=== PATIENT | female | born 1930 | race African-American/Black ===

== ENCOUNTER 2017-09-25 10:53 | Inpatient (IN) | payer OTHER ==
[2017-09-25] MEDS ORDERED: NA CHLORIDE 0.9% 250 ML ONE (11:28)
[2017-09-25 11:57] LABS: Absolute Monocytes 0.6 K/uL (0.1-1.3); Absolute Neutrophil 4.7 K/uL (1.8-8.0); Basophils % 0.5 % (0-1.3); Hematocrit 37.1 % (36.0-45.0); Lymphocytes % 26.8 % (15.3-44.8); MCH 27.6 pg (27.0-35.0); MCV 86.8 fL (80-100); MPV 9.8 fL (7.6-11.3); Monocytes % 7.6 % (3.3-12.3); RBC Red Blood Cell Count 4.27 M/uL (3.86-4.86)
[2017-09-25 12:06] LABS: Protime INR 1.01
--- NOTE | 2017-09-25 12:15 | RAD REPORT ---
EXAM DESCRIPTION: CT - Head Brain Wo Cont - 09/25/2017 11:47 am CLINICAL HISTORY: Hypotensive, weakness, dizziness COMPARISON: CT head January 2017 TECHNIQUE: Axial 5 mm thick images of the head were obtained without IV contrast. All CT scans are performed using dose optimization technique as appropriate and may include automated exposure control or mA/KV adjustment according to patient size. FINDINGS: No intracranial hemorrhage, mass, edema or shift of mid-line structures. No acute cortical based infarction is identifiable. The patient has a baseline of moderate severity atrophy and chroni c ischemic change. Old encephalomalacia from prior CVA is present in the medial left occipital lobe a nd in the left basal ganglia. Small old infarctions seen near the right head of the caudate. No abnor mal extra-axial fluid collections. Ventricles are in proportion to volume loss. Physiologic and arter ial calcifications are present. Intracranial findings are similar to prior imaging. Patient has chronic opacification of small mastoid air cells. Partially visualized paranasal sinuses are clear. No acute bony findings. IMPRESSION: Prominent atrophy, chronic ischemic change and old infarction changes are present and de tailed in the body of the report. No acute intracranial finding or significant interval change.
[2017-09-25 12:20] LABS: Albumin 3.8 g/dL (3.2-5.5); Bilirubin Direct 0.1 mg/dL (0-0.2); Bilirubin Total 0.5 mg/dL (0.3-1.2); Magnesium 2.1 mg/dL (1.8-2.5); Protein, Total 7.6 g/dL (6.0-8.3)
[2017-09-25 12:23] LABS: CKMB Creatine Kinase MB 2.1 ng/ml (0.3-4.0)
[2017-09-25 12:32] LABS: Urine Blood TRACE (NEG); Urine Glucose NEGATIVE (NEG); Urine Protein TRACE (NEG); Urine Specific Gravity 1.015 (1.005-1.030); Urine pH 7.5 (5.0-7.0)
[2017-09-25] MEDS ORDERED: NA CHLORIDE 0.9% 500 ML ONE (12:34)
--- NOTE | 2017-09-25 12:38 | RAD REPORT ---
EXAM DESCRIPTION: RAD - Chest Single View - 09/25/2017 11:57 am CLINICAL HISTORY: Weakness, dizziness, shortness of breath, hypotension COMPARISON: October 06, 2016 TECHNIQUE: AP portable chest image was obtained 1147 hours . FINDINGS: No focal suspicious mass or consolidation. Failure and volume overload are not suspected. Heart, vasculature and lung markings are similar to the comparison. Trachea is midline. No measurable pleural effusion and no pneumothorax. No gross bony abnormality seen. No acute aortic findings suspe cted. IMPRESSION: No mass, consolidation or significant chest finding. Heart, vasculature and lung markings are not significantly different from comparison.
--- NOTE | 2017-09-25 12:57 | EDPHYS ---
Physician Documentation [facility] Name: Tati Drake Age: 87 yrs Sex: Female : 1930 Arrival Date: 09/25/2017 Time: 10:56 Bed 4 Private MD: Mauro Sprague ED Physician Matthias Arndt HPI: 09/25 11:30 This 87 yrs old Black Female presents to ER via Ambulatory with complaints of Blurred cp Vision, Dizziness, Blood Pressure Problem. 11:30 The patient's problem is reported as weakness, lower extremities, dizziness, blurred cp vision. 11:30 Onset: The symptoms/episode began/occurred this morning. cp 11:30 Duration: The episode is continuous. Associated signs and symptoms: Pertinent cp positives: history of hypotension at home, Pertinent negatives: abdominal pain, chest pain, headache. Patient's baseline: Neuro: alert but confused, Motor: right-sided weakness, Ambulation: walks with assist only, Speech: slow, The patient has a previous history of CVA. 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 - Social history:: Smoking status: Patient/guardian denies using tobacco. ROS: 11:35 Constitutional: Negative for body aches, chills, fever, poor PO intake. cp 11:35 ENT: Negative for injury, pain, and discharge. cp 11:35 Eyes: Positive for blurry vision, Negative for discharge, pain, redness. 11:35 Neck: Negative for pain with movement, pain at rest, stiffness, tenderness, bony tenderness. 11:35 Cardiovascular: Negative for chest pain, edema. 11:35 Respiratory: Negative for cough, shortness of breath, wheezing. 11:35 Abdomen/GI: Negative for abdominal pain, vomiting, diarrhea, constipation, black/tarry stool, rectal bleeding. 11:35 Back: Negative for pain at rest, pain with movement. 11:35 : Negative for urinary symptoms. 11:35 Skin: Negative for cellulitis, rash. 11:35 Neuro: Positive for dizziness, weakness, Negative for altered mental status, syncope, near syncope. 11:35 All other systems are negative. Exam: 11:33 ECG was reviewed by the Attending Physician. cp 11:40 Constitutional: The patient appears in no acute distress, alert, awake, cp non-diaphoretic, non-toxic, well developed, well nourished. 11:40 Head/Face: Normocephalic, atraumatic. cp 11:40 Eyes: Periorbital structures: appear normal, Pupils: equal, round, and reactive to light and accomodation, Extraocular movements: intact throughout, Conjunctiva: normal, no exudate, no injection, Sclera: no appreciated abnormality, Lids and lashes: appear normal, bilaterally. 11:40 ENT: External ear(s): are unremarkable, Ear canal(s): are normal, clear, TM's: bulging, is not appreciated, bilaterally, dullness, bilaterally, erythema, is not appreciated, bilaterally, Nose: is normal, Mouth: Lips: dry, Oral mucosa: moist, Posterior pharynx: is normal, airway is patent, no erythema, no exudate. 11:40 Neck: C-spine: vertebral tenderness, is not appreciated, crepitus, is not appreciated, ROM/movement: is normal, is supple, without pain, no range of motions limitations, no meningismus, no nuchal rigidity. 11:40 Chest/axilla: Inspection: normal, Palpation: is normal, no crepitus, no tenderness. 11:40 Cardiovascular: Rate: normal, Rhythm: regular, Pulses: Pulses are 2+ in right radial artery and left radial artery. Edema: is not appreciated, JVD: is not appreciated. 11:40 Respiratory: the patient does not display signs of respiratory distress, Respirations: normal, no use of accessory muscles, no retractions, no splinting, no tachypnea, labored breathing, is not present, Breath sounds: are clear throughout, no decreased breath sounds, no stridor, no wheezing. 11:40 Abdomen/GI: Inspection: abdomen appears normal, Bowel sounds: active, all quadrants, Palpation: abdomen is soft and non-tender, in all quadrants, rebound tenderness, is not appreciated, voluntary guarding, is not appreciated, involuntary guarding, is not appreciated. 11:40 Back: pain, is absent, ROM is normal. 11:40 Skin: cellulitis, is not appreciated, no rash present. 11:40 Neuro: Orientation: no acute changes, per family, Mentation: able to follow commands, slow to respond, Cerebellar function: Romberg testing is negative, Motor: moves all fours. 12:25 Radiologist reports: negative for acute findings Vital Signs: 11:02 BP 177 / 52; Pulse 86; Resp 19; Temp 97.6; Pulse Ox 96% on R/A; Weight 74.84 kg; Height la1 5 ft. 4 in. (162.56 cm); 11:10 BP 194 / 70 Supine; Pulse 57; sv 11:12 BP 203 / 123 Sitting; Pulse 93; sv 11:14 BP 199 / 104 Standing; Pulse 126; sv 12:17 BP 168 / 69; Pulse 55 MON; Resp 18; Pulse Ox 98% on R/A; sv 13:52 BP 214 / 93; Pulse 67; Resp 18; Pulse Ox 99% ; sv 14:44 BP 166 / 44; Pulse 73 MON; Resp 14; Pulse Ox 99% on R/A; sv 11:02 Body Mass Index 28.32 (74.84 kg, 162.56 cm) la1 12:17 Sinus bradycardia sv 14:44 Sinus Rhythm sv MDM: 11:11 Patient medically screened. cp 12:45 Data reviewed: vital signs, nurses notes, lab test result(s), EKG, radiologic studies, cp CT scan, plain films. 12:45 Test interpretation: by ED physician or midlevel provider: ECG, plain radiologic cp studies. 12:51 Physician consultation: Tory Morris DO was called at 12:53, was contacted at 12:53, regarding admission, to the telemetry unit. patient's condition. 09/25 11:18 Order name: Basic Metabolic Panel; Complete Time: 12:23 cp 09/25 12:23 Interpretation: Normal except: CL 99; BUN 49; CRE 2.46; GFR 22. cp 09/25 11:18 Order name: BNP; Complete Time: 12:25 cp 09/25 12:25 Interpretation: Abnormal: BNP 225. cp 09/25 11:18 Order name: CBC with Diff; Complete Time: 12:00 cp 09/25 12:01 Interpretation: Normal except: HGB 11.8; MCV 86.8; MCHC 31.8. cp 09/25 11:18 Order name: Ckmb; Complete Time: 12:25 cp 05 11:18 Order name: CPK; Complete Time: 12:25 cp 09/25 11:18 Order name: LFT's; Complete Time: 12:23 cp 09/25 12:23 Interpretation: Normal except: GLOB 3.8; A/G 1.0. cp 05/ 11:18 Order name: Magnesium; Complete Time: 12:25 cp 09/25 11:18 Order name: PT-INR; Complete Time: 12:23 cp 09/25 11:18 Order name: Ptt, Activated; Complete Time: 12:23 cp 09/25 11:18 Order name: Troponin (emerg Dept Use Only); Complete Time: 12:23 cp 09/25 12:20 Order name: Urine Dipstick--Ancillary (enter results); Complete Time: 12:40 ag 09/25 12:40 Interpretation: Normal except: UBLD TRACE; UPH 7.5; UESTR 2+. cp 09/25 12:26 Order name: Urine Microscopic Only; Complete Time: 13:15 cp 09/25 13:16 Interpretation: Normal except: UWBC 5-10; UBACT 20-50; SQEPI 10-20. cp 05 13:10 Order name: Urine Culture EDMS 09/25 13:23 Order name: Basic Metabolic Panel EDMS 09/25 11:16 Order name: Orthostatics; Complete Time: 11:26 cp 09/25 11:16 Order name: EKG; Complete Time: 11:17 cp 09/25 11:16 Order name: EKG - Nurse/Tech; Complete Time: 11:29 cp 09/25 11:18 Order name: XRAY Chest (1 view); Complete Time: 12:40 cp 09/25 11:18 Order name: Cardiac monitoring; Complete Time: 12:16 cp 09/25 11:18 Order name: IV Saline Lock; Complete Time: 11:48 cp 09/25 11:23 Order name: CT Head Brain wo Cont; Complete Time: 12:23 cp 09/25 12:24 Interpretation: Report reviewed. cp 09/25 13:23 Order name: Regular EDMS 09/25 13:23 Order name: Basic Metabolic Panel EDMS 09/25 13:23 Order name: CBC with Automated Diff EDMS 09/25 13:23 Order name: CBC with Automated Diff EDMS 09/25 11:18 Order name: Labs collected and sent; Complete Time: 11:48 cp 09/25 11:18 Order name: O2 Per Protocol; Complete Time: 11:23 cp 09/25 11:18 Order name: O2 Sat Monitoring; Complete Time: 11:23 cp 12 11:18 Order name: Urine Dipstick-Ancillary (obtain specimen); Complete Time: 12:16 cp 09/25 11:48 Order name: Cath; Complete Time: 12:16 cp EC:33 Rate is 51 beats/min. Rhythm is regular. LA interval is normal. QRS interval is normal. cp QT interval is normal. T waves are Inverted in leads I, aVL. No ST changes noted. Interpreted by me. Reviewed by me. Administered Medications: 12:16 Drug: NS 0.9% 250 ml Route: IV; Rate: bolus; Site: right forearm; sv 13:00 Follow up: Response: No adverse reaction; IV Status: Completed infusion; IV Intake: sv 250ml 13:30 Drug: NS 0.9% 1000 ml Route: IV; Rate: 75 ml/hr; Site: right forearm; sv 15:00 Follow up: Response: No adverse reaction; IV Status: Completed infusion sv 13:31 Drug: hydrALAZINE 10 mg Route: IV; Rate: bolus; Site: right forearm; sv 13:35 Follow up: Response: No adverse reaction; IV Status: Completed infusion; IV Intake: sv 0.5ml 13:51 Drug: HydrALAZINE 50 mg Route: PO; sv 14:15 Follow up: Response: No adverse reaction sv 14:11 Drug: hydrALAZINE 10 mg Route: IV; Rate: calculated rate; Site: right forearm; sv 14:15 Follow up: Response: No adverse reaction; IV Status: Completed infusion; IV Intake: sv 0.5ml Disposition: 09/25/17 12:56 Hospitalization ordered by Mauro Sprague for Inpatient Admission. Preliminary diagnosis are Hypertensive heart disease, Dehydration, Dizziness. - Bed requested for Telemetry/MedSurg (Inpatient). - Status is Inpatient Admission. sv - Condition is Stable. - Problem is new. - Symptoms have improved. UTI on Admission? No Addendum: 09/27/2017 08:55 Co-signature as Attending Physician, Matthias Arndt MD I agree with the assessment and c weldon plan of care. Signatures: Dispatcher [employer] EDBrandie Ludwig RN RN sv Anderson, Corey, MD MD cha Williams, Irene, RN RN iw Luis Palmer RN RN laMatthias Patrick PA PA cp Corrections: (The following items were deleted from the chart) 09/25 13:51 12:56 Hospitalization Ordered by Mauro Sprague MD for Inpatient Admission. Preliminary iw diagnosis is Hypertensive heart disease; Dehydration; Dizziness. Bed requested for Telemetry/MedSurg (Inpatient). Status is Inpatient Admission. Condition is Stable. Problem is new. Symptoms have improved. UTI on Admission? No. cp 15:08 13:51 09/25/2017 12:56 Hospitalization Ordered by Mauro Sprague MD for Inpatient sv Admission. Preliminary diagnosis is Hypertensive heart disease; Dehydration; Dizziness. Bed requested for Telemetry/MedSurg (Inpatient). Status is Inpatient Admission. Condition is Stable. Problem is new. Symptoms have improved. UTI on Admission? No. iw
[2017-09-25 13:08] LABS: Urine Amorphous Sediment 1+ /HPF (NONE SEEN); Urine Bacteria 20-50 /HPF (<20); Urine Culture Reflex Order REFLEXED; Urine RBC <5 /HPF (NONE SEEN)
[2017-09-25] MEDS ORDERED: ONDANSETRON 4 MG/2 ML VIAL IV PRN (13:20)
[2017-09-25] MEDS ORDERED: HYDRALAZINE HCL 20 MG/ML VIAL IV PRN (13:21)
[2017-09-25] MEDS ORDERED: HYDRALAZINE HCL 10 MG TABLET ONE (13:45)
--- NOTE | 2017-09-25 15:09 | ER ---
Nurse's Notes [facility] Name: Tati Drake Age: 87 yrs Sex: Female : 1930 Arrival Date: 09/25/2017 Time: 10:56 Bed 4 Private MD: Mauro Sprague Diagnosis: Hypertensive heart disease;Dehydration;Dizziness Presentation: 09/25 11:03 Presenting complaint: Child states: Her BP has been running low for the last 2 days la1 (systolic in the 100s) but this morning it was 75/56 and she was feeling dizzy. Transition of care: patient was not received from another setting of care. Onset of symptoms was September 25, 2017. Initial Sepsis Screen: Does the patient meet any 2 criteria? No. Patient's initial sepsis screen is negative. Does the patient have a suspected source of infection? No. Patient's initial sepsis screen is negative. Care prior to arrival: None. 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 - Social history:: Smoking status: Patient/guardian denies using tobacco. Screenin:40 Abuse screen: Denies threats or abuse. Denies injuries from another. Nutritional sv screening: No deficits noted. Tuberculosis screening: No symptoms or risk factors identified. Fall Risk None identified. Assessment: 11:35 General: Appears in no apparent distress. comfortable, Behavior is calm, cooperative, sv appropriate for age. Pain: Denies pain. Neuro: Level of Consciousness is awake, alert, obeys commands, Oriented to person, place, time, situation, Moves all extremities. Speech is normal, Reports blurred vision dizziness. Cardiovascular: Heart tones S1 S2 present Patient's skin is warm and dry. Pulses are 3+ in right radial artery and left radial artery Rhythm is sinus rhythm. Respiratory: Respiratory effort is even, unlabored, Respiratory pattern is regular, symmetrical. Derm: Skin is normal. 13:30 Reassessment: Patient appears in no apparent distress at this time. No changes from sv previously documented assessment. Patient and/or family updated on plan of care and expected duration. Pain level reassessed. Patient is alert, oriented x 3, equal unlabored respirations, skin warm/dry/pink. 14:11 Reassessment: No changes from previously documented assessment. Patient and/or family sv updated on plan of care and expected duration. Pain level reassessed. Patient is alert, oriented x 3, equal unlabored respirations, skin warm/dry/pink. Pt given more BP med before going up to the floor. Vital Signs: 11:02 BP 177 / 52; Pulse 86; Resp 19; Temp 97.6; Pulse Ox 96% on R/A; Weight 74.84 kg; Height la1 5 ft. 4 in. (162.56 cm); 11:10 BP 194 / 70 Supine; Pulse 57; sv 11:12 BP 203 / 123 Sitting; Pulse 93; sv 11:14 BP 199 / 104 Standing; Pulse 126; sv 12:17 BP 168 / 69; Pulse 55 MON; Resp 18; Pulse Ox 98% on R/A; sv 13:52 BP 214 / 93; Pulse 67; Resp 18; Pulse Ox 99% ; sv 14:44 BP 166 / 44; Pulse 73 MON; Resp 14; Pulse Ox 99% on R/A; sv 11:02 Body Mass Index 28.32 (74.84 kg, 162.56 cm) la1 12:17 Sinus bradycardia sv 14:44 Sinus Rhythm sv ED Course: 10:56 Patient arrived in ED. mr 10:57 Mauro Sprague MD is Private Physician. mr 11:04 Triage completed. la1 11:04 Arm band placed on left wrist. la1 11:11 [facility]thias France PA [facility]. cp 11:11 Matthias Arndt MD is Attending Physician. cp 11:40 Patient has correct armband on for positive identification. Bed in low position. Call sv light in reach. Side rails up X2. Adult w/ patient. desk monitor on. Pulse ox on. NIBP on. Door closed. Head of bed elevated. 11:40 Initial lab(s) drawn, by me, sent to lab. Inserted saline lock: 22 gauge in right sv forearm, using aseptic technique. ,using aseptic technique. diffusics Blood collected. Flushed right forearm with 5 ml normal saline. 11:45 CT completed. Patient moved to CT via stretcher. Patient moved to radiology. cw1 11:46 Therese, Brandie, RN is Primary Nurse. sv 11:48 CT Head Brain wo Cont In Process Unspecified. EDMS 11:56 XRAY Chest (1 view) In Process Unspecified. EDMS 12:17 Straight cath inserted, using sterile technique, 16 Fr. Specimen obtained. Returned sv cloudy urine. Patient tolerated well. 12:54 Mauro Sprague MD is Hospitalizing Provider. cp 14:17 IV is patent, is intact, with fluids infusing freely. sv 14:17 No provider procedures requiring assistance completed. Patient admitted, IV remains in sv place. intact. Administered Medications: 12:16 Drug: NS 0.9% 250 ml Route: IV; Rate: bolus; Site: right forearm; sv 13:00 Follow up: Response: No adverse reaction; IV Status: Completed infusion; IV Intake: sv 250ml 13:30 Drug: NS 0.9% 1000 ml Route: IV; Rate: 75 ml/hr; Site: right forearm; sv 15:00 Follow up: Response: No adverse reaction; IV Status: Completed infusion sv 13:31 Drug: hydrALAZINE 10 mg Route: IV; Rate: bolus; Site: right forearm; sv 13:35 Follow up: Response: No adverse reaction; IV Status: Completed infusion; IV Intake: sv 0.5ml 13:51 Drug: HydrALAZINE 50 mg Route: PO; sv 14:15 Follow up: Response: No adverse reaction sv 14:11 Drug: hydrALAZINE 10 mg Route: IV; Rate: calculated rate; Site: right forearm; sv 14:15 Follow up: Response: No adverse reaction; IV Status: Completed infusion; IV Intake: sv 0.5ml Intake: 13:00 IV: 250ml; Total: 250ml. sv 13:35 IV: 1ml; Total: 251ml. sv 14:15 IV: 1ml; Total: 251ml. sv Outcome: 12:56 Decision to Hospitalize by Provider. cp 15:00 Admitted to Tele accompanied by tech, family with patient, via stretcher, room 419, sv with chart, Report called to Sara HORN 15:00 Condition: stable 15:00 Instructed on the need for admit. 15:08 Patient left the ED. sv Signatures: Dispatcher [employer] Brandie Tsai RN RN Daria Cano Crystal cw1 Luis Palmer RN RN la1 Matthias France PA PA cp Corrections: (The following items were deleted from the chart) 14:20 14:11 Reassessment: Pt given more BP med before going up to the floor. sv sv
[2017-09-25 16:13] VITALS: O2SAT 97
[2017-09-25 17:33] VITALS: BMI 28.3
[2017-09-25] MEDS: ACETAMINOPHEN 500 MG TAB PO PRN (17:49)
[2017-09-25] MEDS: NA CHLORIDE 0.9% 1,000 ML IV SCH (17:50)
[2017-09-26] MEDS: NA CHLORIDE 0.9% 1,000 ML IV SCH ×2 (03:20→05:41)
[2017-09-26] MEDS: ACETAMINOPHEN 500 MG TAB PO PRN (05:43)
[2017-09-26 06:21] LABS: Absolute Lymphocytes (CBC) 1.6 K/uL (0.7-4.9); Absolute Monocytes 0.6 K/uL (0.1-1.3); Absolute Neutrophil 3.9 K/uL (1.8-8.0); Basophils % 0.4 % (0-1.3); Eosinophils % 1.8 % (0-4.4); Hematocrit 32.6 % (36.0-45.0); Lymphocytes % 26.1 % (15.3-44.8); MCH 27.8 pg (27.0-35.0); MCV 86.2 fL (80-100); MPV 9.7 fL (7.6-11.3); Monocytes % 9.1 % (3.3-12.3); RBC Red Blood Cell Count 3.78 M/uL (3.86-4.86)
[2017-09-26 06:27] LABS: Potassium 4.8 mEq/L (3.6-5.0)
[2017-09-26] MEDS ORDERED: cloNIDine HCl 0.1 MG TAB PO PRN (13:16)
[2017-09-26] MEDS ORDERED: TRAMADOL HCL 50 MG TAB PO PRN (13:16)
--- NOTE | 2017-09-26 14:44 | P.SSS ---
Patient History Date of Service: 09/26/17 Primary Care Provider: Dr Sprague Reason for admission: Hypotension History of Present Illness: 87 y/o F with significant PMHX of CKD, HTN and DM presented to the ER with complains of dizziness. She was admitted to Dr Sprague Service however, PCP is out of town and Hospitalist team is covering. Pt stated she started feeling dizzy only when she would get up after taking her BP medication. Pt was found to have Hypotension on admission and the rebound Hypertension. On questioning the patient she stated that she takes all her BP medication togather in the AM to avoid forgetting it later in the day. She does have a friend who comes out and helps her with Medication and around the house. No other complains to offer at this time. No fever, chills or any Urinary symptoms that was noted. She states she does not have syncopal episode or does not have vertigo. She just feels dizzy when getting up from bed after taking her BP meds. Allergies aspirin Allergy (Verified 09/29/16 15:13) Unknown Penicillins Adverse Reaction (Intermediate, Verified 09/29/16 15:13) Nausea/Vomiting salicylic acid Adverse Reaction (Intermediate, Verified 09/29/16 15:13) Nausea/Vomiting Home Medications: Atorvastatin Calcium 1 tab PO DAILY 01/26/17 Clopidogrel Bisulfate [Plavix*] 75 mg PO DAILY 01/26/17 Furosemide 1 tab PO DAILY 01/26/17 Gabapentin [Neurontin*] 1 cap PO BID 01/26/17 Losartan Potassium 1 tab PO BID 01/26/17 Metoprolol Tartrate 1 tab PO BID 01/26/17 traMADol HCL [Ultram*] 1 tab PO QIDP PRN 01/26/17 Clonidine HCl 0.1 mg PO DAILYPRN PRN 09/25/17 - Past Medical/Surgical History Has patient received pneumonia vaccine in the past: Yes Diabetic: No -: HTN -: CHF -: CVA X3 -: TIA -: ARTHRITIS -: CAD -: Obesity -: HYSTERECTOMY -: Right KNEE REPLACEMENT -: LEFT KNEE REPLACEMENT - Social History Smoking Status: Never smoker Alcohol use: No CD- Drugs: No Caffeine use: Yes Place of Residence: Home Review of Systems General: As per HPI Physical Examination - Vital Signs Temperature: 98.3 F Blood Pressure: 155/70 Pulse: 73 Respirations: 18 Pulse Ox (%): 96 - Physical Exam General: Alert, In no apparent distress HEENT: Atraumatic, PERRLA, Mucous membr. moist/pink, EOMI, Sclerae nonicteric Neck: Supple, 2+ carotid pulse no bruit, No LAD, Without JVD or thyroid abnormality Respiratory: Clear to auscultation bilaterally, Normal air movement Cardiovascular: Regular rate/rhythm, Normal S1 S2 Gastrointestinal: Normal bowel sounds, No tenderness Musculoskeletal: No tenderness Integumentary: No rashes Neurological: Normal gait, Normal speech, Normal strength at 5/5 x4 extr, Normal tone, Normal affect Lymphatics: No axilla or inguinal lymphadenopathy - Diagnosis (Problem(s)) (1) Dizziness Current Visit: Yes Status: Acute Plan: Pt c/o of dizziness and hypotension -Currently pt is on metoprolol 25mg BID, lasix 20mg daily, Losartan 50mg BID and clonidine 0.1mg which she is taking all at one time. -Pt was educated on taking her medication seperately to avoid having Hypotension and then rebound Hypertension -Pt was asked to take lasix in AM and Clonidine in PM -HH consulted and will see pt at home for PT and Fall prescautions. -Pt will also have Providers for help. -DC home today (2) CKD (chronic kidney disease) Current Visit: Yes Status: Chronic Plan: Improved post hydration. 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 Please take the medication as follows. Lasix 20mg daily at 9AM. Losartan 50mg twice daily at 8AM and 8PM. Metoprolol 25mg Twice daily at 10AM and 10PM. Clonidine 0.1mg daily for 10PM. You are having hypotension due to taking all your BP medication at one time. You are to space out the medication as listed above. Diet: Regular Activity: Ad perlita
--- NOTE | 2017-09-26 15:25 | EKG ---
Test Date: 2017-09-25 Test Time: 11:26:46 [employer] Property Manager: SAFIA MEASUREMENT RESULTS: Intervals: Rate: 51 KS: 164 QRSD: 92 QT: 448 QTc: 412 [place]: P: 35 KS: 164 QRS: -11 T: 103 INTERPRETIVE STATEMENTS: Sinus bradycardia Inferior infarct, age undetermined T wave abnormality, consider lateral ischemia Abnormal ECG Compared to ECG 01/26/2017 17:58:19 No significant changes Electronically Signed On 09-26-17 15:24:39 CDT by Lam Jackson
[2017-09-26 18:10] VITALS: BP 172/64; TEMP 98.4
[2017-09-26] MEDS ORDERED: METOPROLOL TAR 25 MG TAB PO SCH (21:00)
[2017-09-26] MEDS ORDERED: HOME MED 1 EA UNK (Losartan Potassium [Losartan Potassium] 1 TAB) PO SCH (21:00)
[2017-09-26] MEDS ORDERED: ATORVASTATIN 20 MG TAB PO SCH (21:00)
[2017-09-26] MEDS ORDERED: LOSARTAN POTASSIUM 50 MG TABLET PO SCH (21:00)
[2017-09-26] MEDS ORDERED: GABAPENTIN 300 MG CAP PO SCH (21:00)
[2017-09-27] MEDS ORDERED: CLOPIDOGREL 75 MG TABLET PO SCH (09:00)
[2017-09-27] MEDS ORDERED: FUROSEMIDE 20 MG TABLET PO SCH (09:00)
== END 2017-09-26 17:56 | disposition home or self-care (01) | DRG 314 ==
LOC: ER 10:53 → ERHOLD 13:19 → 4TH 14:54
PROVIDERS: ADMIT Family Medicine; ATTEND Family Medicine
DX: I95.89 Other hypotension (principal); L89.613 Pressure ulcer of right heel, stage 3; I13.0 Hypertensive heart and chronic kidney disease with heart failure and stage 1 through stage 4 chronic kidney disease, or unspecified chronic kidney disease; I50.22 Chronic systolic (congestive) heart failure; N18.3 Chronic kidney disease, stage 3 (moderate); I25.10 Atherosclerotic heart disease of native coronary artery without angina pectoris; Z86.73 Personal history of transient ischemic attack (TIA), and cerebral infarction without residual deficits
CPT/HCPCS: 36415; 51702; 70450; 71045; 80048; 80076; 81003; 81015; 82550; 82553; 83735; 83880; 84484; 85025; 85610; 85730; 87086; 87088; 93005; 96361; 96365; 96375; 99285; J0360; J7030